=== PATIENT | male | born 1950 | race Asian ===

== ENCOUNTER 2018-09-20 12:51 | Day surgery (SDC) | payer MEDICARE, OTHER ==
[2018-09-20] MEDS ORDERED: PROPOFOL 40 ML (17:39)
== END 2018-09-20 19:27 | disposition home or self-care (01) ==
LOC: GIL 12:51
DX: Z12.11 Encounter for screening for malignant neoplasm of colon (principal); K64.8 Other hemorrhoids; E78.5 Hyperlipidemia, unspecified
CPT/HCPCS: G0121